=== PATIENT | male | born 1995 | race Caucasian/White ===

== ENCOUNTER 2020-11-17 05:23 | Emergency (ER) | payer OTHER ==
[~2020-11-17] VITALS: Ht 177.8 cm; Wt 77.1 kg
[2020-11-17 05:31] VITALS: BP 133/76
--- NOTE | 2020-11-17 05:49 | NUR ---
25 yo m bib self with c/c of diff. breathing and 2/10 chest pain x10 pm last night. chest pain comes and goes, nonrad, began after a concert. pt states he ate a thc edible yesterday before a concert, chest pain began shortly after. pt states he took an aspirin. denies fever, chills cough, and n/v/d. 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 all needs met at this time, bed locked in lowest position, side rails x1. denies hx, rx and allerg
--- NOTE | 2020-11-17 05:53 | NUR ---
ermd sauer at bedside.
--- NOTE | 2020-11-17 06:28 | NUR ---
emt at bedside doing ekg.
--- NOTE | 2020-11-17 06:51 | NUR ---
RAD AT BEDSIDE.
--- NOTE | 2020-11-17 07:02 | NUR ---
PT IS SITTING UP IN BED. ALL NEEDS MET AT THIS TIME. BED LOCKED IN LOWEST POSITION, SIDE RAILS X1.
[2020-11-17 07:06] LABS: BASOPHILS % (AUTO) 0.3 % (0.0-2.0); EOSINOPHILS % (AUTO) 0.6 % (0.0-4.0); HEMATOCRIT 45.2 % (36-52); HEMOGLOBIN 15.1 g/dL (12.0-18.0); LYMPHOCYTES # (AUTO) 1.4 K/uL (2.0-11.5); LYMPHOCYTES % (AUTO) 22.6 % (20.5-51.1); MEAN CORPUSCULAR HEMOGLOBIN 31 pg (27-31); MEAN CORPUSCULAR HGB CONC 34 g/dL (33-37); MEAN CORPUSCULAR VOLUME 92.5 fL (80-94); MONOCYTES # (AUTO) 0.4 K/uL (0.8-1.0); MONOCYTES % (AUTO) 6.9 % (1.7-9.3); NEUTROPHILS # (AUTO) 4.4 K/uL (1.8-7.7); NEUTROPHILS % (AUTO) 69.6 % (42.2-75.2); PLATELET COUNT (AUTO) 192 K/uL (140-450); RED BLOOD CELL COUNT(AUTO) 4.89 MIL/uL (4.20-6.10); WHITE BLOOD COUNT (AUTO) 6.3 K/uL (4.8-10.8)
--- NOTE | 2020-11-17 07:06 | NUR ---
REPORT RECEIVED FROM JOSE ROBERTO LAMAR FOR CONTINUITY OF CARE
--- NOTE | 2020-11-17 07:06 | NUR ---
REPORT GIVEN TO BRIANDA KAPLAN. TRANSFER OF CARE AT THIS TIME.
[2020-11-17 07:25] LABS: ANION GAP 12.4 (8-16); CARBON DIOXIDE 28.2 mmol/L (21-32); CREATININE 0.8 mg/dL (0.6-1.3); POTASSIUM 3.6 mmol/L (3.5-5.1)
--- NOTE | 2020-11-17 07:58 | NUR ---
DR MURILLO PERFORMING ULTRASOUND AT BEDSIDE
--- NOTE | 2020-11-17 08:45 | NUR ---
LAB AT BEDSIDE
[2020-11-17] MEDS ORDERED: COLC-30 PO (09:05)
[2020-11-17] MEDS ORDERED: IBUP-2213 PO (09:05)
[2020-11-17] MEDS: COLCHICINE 0.6 MG TAB PO ONE (09:11)
[2020-11-17 10:23] VITALS: BP 115/78
--- NOTE | 2020-11-17 10:23 | NUR ---
Patient discharged with v/s stable. Written and verbal after care instructions given and explained. Patient alert, oriented and verbalized understanding of instructions. Ambulatory with steady gait. All questions addressed prior to discharge. ID band removed. Patient advised to follow up with PMD. Rx of COLCHICINE AND IBUPROFEN given. Patient educated on indication of medication including possible reaction and side effects. Opportunity to ask questions provided and answered.
== END 2020-11-17 10:23 | disposition home or self-care (01) ==
LOC: MED 05:23
DX: I30.9 Acute pericarditis, unspecified (principal)
CPT/HCPCS: 36415; 71045; 80048; 84484; 85025; 93005; 99285; Q0092